=== PATIENT | female | born 1950 | race African-American/Black ===

== ENCOUNTER 2018-02-20 15:30 | Outpatient (CLI) | payer MEDICARE, MEDICAID | END 2018-02-20 15:31 | disposition home or self-care (01) | LOC: BICMAMMO 15:30 | PROVIDERS: ATTEND Obstetrics & Gynecology | DX: Z12.31 Encounter for screening mammogram for malignant neoplasm of breast (principal); Z80.3 Family history of malignant neoplasm of breast | CPT/HCPCS: 77063; 77067 ==